=== PATIENT | male | born 1940 | race African-American/Black ===

== ENCOUNTER 2025-06-01 14:14 | Emergency (ER) | payer OTHER ==
[~2025-06-01] VITALS: Ht 172.7 cm; Wt 95.0 kg
[2025-06-01 14:20] VITALS: TEMP 98.7; O2SAT 97
[2025-06-01 15:55] LABS: BASOPHILS % 0.3 % (0.0-2.0); EOSINOPHILS % 0.5 % (0.0-5.0); HEMATOCRIT. 35.7 % (42.0-52.0); HEMOGLOBIN. 11.8 g/dL (14.0-18.0); LYMPHOCYTES % 19.8 % (20.0-50.0); MEAN PLATELET VOLUME 7.9 fl (7.4-10.4); MONOCYTES % 7.9 % (2.0-8.0); NEUTROPHILS % 71.5 % (40.0-76.0); PLATELET 146 x1000/uL (130-400); RED BLOOD CELL COUNT 3.56 mill/uL (4.7-6.1); RED CELL DISTRIBUTION WIDTH 13.9 % (11.6-14.6)
[2025-06-01 15:58] LABS: CREATININE 0.9 mg/dL (0.6-1.3); ETHANOL BLOOD < 10 mg/dL (<10); UREA NITROGEN BLOOD 14 mg/dL (9-23)
[2025-06-01 15:59] LABS: ASPARTATE AMINOTRANSFERASE 18 IU/L (<34); PROTEIN TOTAL 8.0 g/dL (6.0-8.3); TROPONIN I HIGH SENSITIVITY 11 ng/L (3.0-53)
[2025-06-01 16:00] LABS: BILIRUBIN DIRECT 0.3 mg/dL (<=3.0); BILIRUBIN TOTAL 0.7 mg/dL (0.1-1.0)
[2025-06-01 16:01] LABS: INR 1.3
[2025-06-01 16:10] LABS: *AMPHETAMINES SCREEN URINE NEGATIVE (NEGATIVE); *BARBITURATES SCREEN URINE NEGATIVE (NEGATIVE); *BENZODIAZEPINES SCREEN URINE NEGATIVE (NEGATIVE); *COCAINE SCREEN URINE NEGATIVE (NEGATIVE); CANNABINOID URINE SCREEN NEGATIVE (NEGATIVE); ECSTASY MDMA SCREEN URINE NEGATIVE (NEGATIVE); METHADONE URINE SCREEN NEGATIVE (NEGATIVE); OPIATES URINE SCREEN NEGATIVE (NEGATIVE); PHENCYCLIDINE URINE SCREEN NEGATIVE (NEGATIVE)
[2025-06-01] MEDS: DILTIAZEM HCL 60MG TABLET PO ONE (16:27)
[2025-06-01 16:57] VITALS: BP 141/73; PULSE 96; RESP 19; O2SAT 96
== END 2025-06-01 17:15 | disposition home or self-care (01) ==
LOC: ER 14:14 → EDBEDREQ 14:57 → CANBEDREQ 16:53 → ER 17:15
DX: R00.2 Palpitations (principal); I11.0 Hypertensive heart disease with heart failure; I50.9 Heart failure, unspecified; Z79.899 Other long term (current) drug therapy; Z79.01 Long term (current) use of anticoagulants
CPT/HCPCS: 36415; 71045; 80048; 80076; 80305; 80320; 83735; 83880; 84484; 85025; 99285; G0480